=== PATIENT | female | born 1995 | race Caucasian/White ===

== ENCOUNTER 2017-11-03 08:33 | Emergency (ER) | payer MEDICAID ==
[~2017-11-03] VITALS: Ht 160 cm; Wt 129.5 kg
[2017-11-03] MEDS ORDERED: DEXT15SY3 PO (08:41)
[2017-11-03] MEDS ORDERED: IBUP-2354 PO (08:41)
[2017-11-03 09:08] VITALS: BP 122/74
== END 2017-11-03 09:48 | disposition home or self-care (01) ==
LOC: EMS 08:35
DX: J06.9 Acute upper respiratory infection, unspecified (principal)
CPT/HCPCS: 99282